=== PATIENT | female | born 1955 | race Hispanic/Latino ===

== ENCOUNTER 2021-09-30 06:43 | Day surgery (SDC) | payer MEDICARE ==
[2021-09-30 07:52] LABS: Basophils % (Auto) 0.4 % (0.0-1.8); Eosinophils # (Auto) 0.1 K/mm3 (0.0-0.4); Eosinophils % (Auto) 1.6 % (0.0-4.3); Hematocrit 45.5 % (30.3-42.9); Lymphocytes # (Auto) 0.7 K/mm3 (1.2-5.4); Lymphocytes % (Auto) 12.2 % (13.4-35.0); Mean Corpuscular HGB Conc 33 % (30-34); Mean Corpuscular Volume 99 fl (79-97); Monocytes # (Auto) 0.5 K/mm3 (0.0-0.8); Monocytes % (Auto) 8.1 % (0.0-7.3); Platelet Count 217 K/mm3 (140-440); Red Blood Count 4.61 M/mm3 (3.65-5.03); Red Cell Distribution Width 13.1 % (13.2-15.2)
[2021-09-30] MEDS ORDERED: SODIUM CHLORIDE 0.9% 500 ML 500 ML IV SCH (08:00)
[2021-09-30 08:02] LABS: Blood Urea Nitrogen 10 mg/dL (7-17); Calcium 9.2 mg/dL (8.4-10.2); Hemolysis Index 7
[2021-09-30 08:05] LABS: BUN/Creatinine Ratio 25
[2021-09-30] MEDS ORDERED: HEPARIN/NS 5000 UNIT/500ML 1,000 ML IR ONE (08:27)
[2021-09-30] MEDS ORDERED: HEPARIN 10,000 UNITS/10 ML VIAL ONE (08:27)
[2021-09-30] MEDS ORDERED: MIDAZOLAM 2 MG/2 ML INJ ONE (08:28)
[2021-09-30] MEDS ORDERED: LIDOCAINE (2%) 20 MG/1 ML VIAL 20 ML MDV INFILTRATI ONE (08:28)
--- NOTE | 2021-09-30 08:30 | Short Stay Summary ---
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 Past Medical History: PVD Social history: no significant social history - Allergies and Medications Current Medications: Allergies No Known Allergies Allergy (Verified 09/30/21 07:30) Active Medications Sodium Chloride (Nacl 0.9% 500 Ml) 500 mls @ 50 mls/hr IV DIRECT OBED Last Admin: 09/30/21 08:20 Dose: 50 mls/hr Documented by: - Physical exam General appearance: no acute distress Integumentary: no rash, no growths HEENT: Atraumatic Lungs: Normal air movement Breasts: deferred Heart: Regular rate Gastrointestinal: normal Female Genitourinary: deferred Rectal Exam: deferred Extremities: abnormal (Decreased right radial pulse) Neurological: Normal gait, Normal speech - Brief post op/procedure progress note Date of procedure: 09/30/21 Pre-op diagnosis: 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
[2021-09-30] MEDS ORDERED: VERAPAMIL 5 MG/2 ML INJ ONE (08:32)
[2021-09-30] MEDS ORDERED: NITROGLYCERIN SYRINGE 3 ML ONE (08:32)
[2021-09-30 08:33] LABS: INR 0.86 (0.87-1.13); Partial Thromboplastin Time 31.5 Sec. (24.2-36.6)
[2021-09-30] MEDS ORDERED: ceFAZolin/Water 2 GM/20 ML 2 GM/20 ML SYRINGE IV ONE (08:36)
[2021-09-30] MEDS: fentaNYL 100 MCG/2 ML INJ ONE ×2 (09:08→09:43)
[2021-09-30] MEDS ORDERED: MIDAZOLAM 2 MG/2 ML INJ IV ONE (09:08)
[2021-09-30] MEDS ORDERED: fentaNYL 100 MCG/2 ML INJ IV ONE (09:58)
[2021-09-30] MEDS ORDERED: CLOPIDOGREL 300 MG TAB ONE (10:02)
[2021-09-30] MEDS ORDERED: ASPIRIN 325 MG TAB ONE (10:03)
[2021-09-30] MEDS ORDERED: ALUM-MAG HYDROXIDE-SIMETHICONE 200-200-20MG/5ML ORAL LIQD 30 ML ONE (10:04)
--- NOTE | 2021-09-30 10:22 | Operative Report ---
Operative Report Operative Report: Exam: Revascularization of right innominate artery Clinical indication: Patient with a history of right innominate artery stenosis with symptomatic right arm and hand numbness. Non-palpable right radial pulses. Preprocedure differential blood pressures. Left, 150/94, right 113/74 Date: 09/30/2021 Procedure: Following an explanation of the risk, benefits and alternatives; written informed consent was obtained. The patient's right groin and right wrist were prepped and draped in the usual sterile fashion. 2% lidocaine was used for anesthesia. Under ultrasound guidance, the right common femoral artery was cannulated using a 7 cm 21-gauge needle. A 0.018 guidewire was advanced centrally. The needle was removed and a microsheath placed. The 0.018 guidewire was exchanged for a 0.035 guidewire and the micro sheath exchanged for a 5 [place] vascular sheath. A 0.035 guidewire was then advanced under fluoroscopy to the descending thoracic aorta. The guidewire was advanced into the ascending thoracic aorta and the 5 [place] sheath exchanged for a 7 [place] 65 cm sheath. The tip of the sheath was placed just distal to the left subclavian artery. A variety use of catheters and guidewires were manipulated through the sheath and selective cannulation of the right innominate artery was performed. Together the catheter and guidewire were advanced into the subclavian artery and ultimately into the brachial artery. The 035 guidewire was exchanged for an 014 guidewire and the catheter withdrawn proximally. Imaging was obtained over the guidewire under fluoroscopy. This demonstrates that the right innominate artery has a high-grade stenosis of approximately 90%. Vessel size distal to this is 8 mm in diameter. Imaging was obtained in multiple obliquities to lay out the origin of the right innominate artery. A 8 mm x 29 mm [place] VBX balloon expandable stent was then danced through the sheath across the lesion. Additional contrast injections were performed with the stent in position to document appropriate positioning prior to deployment. The stent was then deployed and the balloon was insufflated to 12 ricardo. The balloon was then deflated and removed under fluoroscopy. Post stent placement imaging demonstrated reduction of the 90% ostial innominate artery stenosis to less than 10%. Brisk flow is present from the sheath through all major blood vessels in the neck. Post intervention differential blood pressures are 125/69 on the right and 132/79 on the left. A palpable pulse is now present within the patient's right radial artery. At this point, the catheters, guidewires and sheaths were removed and hemostasis achieved using manual compression. A sterile dressing was applied. The patient tolerated the procedure well. There were no immediate postprocedure complications. Conscious sedation was performed under the guidance of radiologic nursing. Continuous cardiopulmonary monitoring was utilized. Impression: Revascularization of right innominate artery with placement of an 8 mm x 29 mm [place] VBX balloon expandable stent graft. Reduction of the right innominate ostial stenosis from 90% to less than 10% with return of a palpable radial pulse and reduction of the asymmetric blood pressures to less than 7 systolic from 37 differential between pre and post
[2021-09-30 13:45] VITALS: BP 135/66
== END 2021-09-30 14:40 | disposition home or self-care (01) ==
LOC: CATHLABREC 06:43
PROVIDERS: ATTEND Radiology Diagnostic Radiology
DX: I70.213 Atherosclerosis of native arteries of extremities with intermittent claudication, bilateral legs (principal); I10 Essential (primary) hypertension; E78.00 Pure hypercholesterolemia, unspecified; J44.9 Chronic obstructive pulmonary disease, unspecified; F17.210 Nicotine dependence, cigarettes, uncomplicated; Z79.82 Long term (current) use of aspirin; Z79.899 Other long term (current) drug therapy; Z98.890 Other specified postprocedural states
CPT/HCPCS: 36415; 37218; 37252; 76937; 80048; 85025; 85610; 85730; C1753; C1769; C1874; C1887; J0690; J1644; J1815; J2250; J3010; J3490; J7040; Q9967